=== PATIENT | female | born 1995 | race Caucasian/White ===

== ENCOUNTER → 2023-01-20 | Outpatient (CLI) | payer OTHER, SELFPAY ==
[2023-01-20 18:20] LABS: CRP 7.26 mg/L (0.0-3.0); T4 Total, Thyroxin 10.1 ug/dL (4.8-13.9); Thyroid Stim Hormone (TSH) 1.98 uIU/mL (0.358-3.74)
[2023-01-22 15:08] LABS: Endomysial Antibody IgA Negative (Negative); Immunoglobulin A 232 mg/dL (87-352); t-Transglutaminase IgA <2 U/mL (0-3)
== END | disposition home or self-care (01) ==
LOC: MTLAB 14:20
PROVIDERS: PCP Family Medicine; Referring Provider Internal Medicine Gastroenterology; Visit Provider Internal Medicine Gastroenterology
DX: R19.7 Diarrhea, unspecified (principal); R10.9 Unspecified abdominal pain
CPT/HCPCS: 36415; 82784; 83516; 84436; 84443; 86140; 86255

== ENCOUNTER → 2023-01-22 | Outpatient (CLI) | payer OTHER, SELFPAY ==
[2023-01-27 00:06] LABS: Calprotectin, Stool 96 ug/g (0-120)
== END | disposition home or self-care (01) ==
LOC: MTLAB 07:25
PROVIDERS: PCP Family Medicine; Referring Provider Internal Medicine Gastroenterology; Visit Provider Internal Medicine Gastroenterology
DX: R19.7 Diarrhea, unspecified (principal)
CPT/HCPCS: 83993